=== PATIENT | male | born 1995 | race African-American/Black ===

== ENCOUNTER 2016-10-17 14:13 | Emergency (ER) | payer OTHER ==
[~2016-10-17] VITALS: Ht 198.1 cm; Wt 91.0 kg
[~2016-10-17 14:13] MED LIST: NAPR500 PO
[2016-10-17] MEDS ORDERED: SODIUM CHLOR 0.9% 1000 ML INJ 1,000 ML IV SCH (14:21)
[2016-10-17 14:22] VITALS: BP 142/88; PULSE 69; RESP 16; TEMP 97.8; O2SAT 100
[2016-10-17 14:30] VITALS: RESP 15; O2SAT 100
[2016-10-17] MEDS ORDERED: KETOROLAC TROMETHAMINE 30 MG/ML (IVP) VIAL IV PUSH ONE (14:30)
[2016-10-17 14:49] LABS: AUTOMATED NEUTROPHIL # 5.2 TH/MM3 (1.8-7.7); BASOPHIL % 0.2 % (0.0-2.0); EOSINOPHIL # 0.1 TH/MM3 (0-0.4); EOSINOPHIL % 1.3 % (0.0-4.0); HEMATOCRIT 41.3 % (39.0-51.0); HEMO FLAGS DIFF FINAL; LYMPHOCYTE # 1.5 TH/MM3 (1.0-4.8); MEAN CELL VOLUME 89.2 FL (80.0-100.0); MEAN CORPUSCULAR HGB CONC 32.5 % (32.0-36.0); MONO % 6.6 % (0.0-8.0); NEUT % 70.9 % (16.0-70.0); PLATELET COUNT 212 TH/MM3 (150-450); RED BLOOD COUNT 4.63 MIL/MM3 (4.50-5.90); RED CELL DISTRIBUTION WIDTH 13.2 % (11.6-17.2); WHITE BLOOD COUNT 7.4 TH/MM3 (4.0-11.0)
--- NOTE | 2016-10-17 14:49 | PD ---
HPI Chief Complaint: Chest Pain Time Seen by Provider: 14:17 Travel History International Travel<30 days: No Contact w/Intl Traveler<30days: No Traveled to known affect area: No History of Present Illness HPI 21-year-old male that presents to the ED for evaluation of chest pain. Per ambulance report and patient he had a little bit too much to drink yesterday. Patient was at a green party and he states that he doesn't know how much she drank. Denies any fevers chills or sweats. Per patient he woke up and weak with a headache which she didn't think much of it but as the day continued he started feeling more weak and tired. Per patient about 45 minutes before ambulance showed up he developed severe chest pain. Per patient she's never had this before. 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 He reports no trauma or injury. He states that the pain is sharp. Does not radiate. He states having some shortness of breath as well. He was not given anything by ambulance. He denies any other substance abuse. States that the pain is 6 out of 10. No fevers chills or sweats. No trauma. Other medical issues. No allergies to medication. PFSH Past Medical History Asthma: Yes Respiratory: Yes Immunizations Current: Yes Social History Alcohol Use: Yes (OCC) Tobacco Use: No Substance Use: No Allergies-Medications (Allergen,Severity, Reaction): Coded Allergies: No Known Allergies (Unverified , 10/17/16) Reported Meds & Prescriptions Reported Meds & Active Scripts Active No Active Prescriptions or Reported Medications Review of Systems Except as stated in HPI: all other systems reviewed are Neg Physical Exam Narrative GENERAL: SKIN: Warm and dry. HEAD: Atraumatic. Normocephalic. EYES: Pupils equal and round. No scleral icterus. No injection or drainage. ENT: No nasal bleeding or discharge. Mucous membranes pink and moist. Tongue is midline. No uvula deviation. NECK: Trachea midline. No JVD. CARDIOVASCULAR: Regular rate and rhythm. No murmurs, S3, S4. Chest is not reproducible with touch. RESPIRATORY: No accessory muscle use. Clear to auscultation. Breath sounds equal bilaterally. GASTROINTESTINAL: Abdomen soft, non-tender, nondistended. Hepatic and splenic margins not palpable. MUSCULOSKELETAL: Extremities without clubbing, cyanosis, or edema. No obvious deformities. Full range of motion of the upper and lower extremities bilaterally. 2+ pulses bilaterally. NEUROLOGICAL: Awake and alert. No obvious cranial nerve deficits. Motor grossly within normal limits. Five out of 5 muscle strength in the arms and legs. Normal speech. PSYCHIATRIC: Appropriate mood and affect; insight and judgment normal. Data Data Last Documented VS Vital Signs Date Time Temp Pulse Resp B/P (MAP) Pulse Ox O2 Delivery O2 Flow Rate FiO2 10/17/16 14:33 15 100 Room Air 10/17/16 14:22 97.8 69 142/88 (106) Orders Orders Electrocardiogram (10/17/16 14:21) Complete Blood Count With Diff (10/17/16 14:21) Comprehensive Metabolic Panel (10/17/16 14:21) Ckmb (Isoenzyme) Profile (10/17/16 14:21) Troponin I (10/17/16 14:21) Lipase (10/17/16 14:21) Magnesium (Mg) (10/17/16 14:21) Chest, Single Ap (10/17/16 14:21) Iv Access Insert/Monitor (10/17/16 14:21) Ecg Monitoring (10/17/16 14:21) Oximetry (10/17/16 14:21) Drug Screen, Random Urine (10/17/16 14:21) Alcohol (Ethanol) (10/17/16 14:21) Sodium Chlor 0.9% 1000 Ml Inj (Ns 1000 M (10/17/16 14:21) Ketorolac Inj (Toradol Inj) (10/17/16 14:30) CKMB (10/17/16 14:20) CKMB% (10/17/16 14:20) Pantoprazole Inj (Protonix Inj) (10/17/16 15:15) Famotidine Inj (Pepcid Inj) (10/17/16 15:15) Labs Laboratory Tests Test 10/17/16 14:20 White Blood Count 7.4 TH/MM3 Red Blood Count 4.63 MIL/MM3 Hemoglobin 13.4 GM/DL Hematocrit 41.3 % Mean Corpuscular Volume 89.2 FL Mean Corpuscular Hemoglobin 29.0 PG Mean Corpuscular Hemoglobin Concent 32.5 % Red Cell Distribution Width 13.2 % Platelet Count 212 TH/MM3 Mean Platelet Volume 9.7 FL Neutrophils (%) (Auto) 70.9 % Lymphocytes (%) (Auto) 21.0 % Monocytes (%) (Auto) 6.6 % Eosinophils (%) (Auto) 1.3 % Basophils (%) (Auto) 0.2 % Neutrophils # (Auto) 5.2 TH/MM3 Lymphocytes # (Auto) 1.5 TH/MM3 Monocytes # (Auto) 0.5 TH/MM3 Eosinophils # (Auto) 0.1 TH/MM3 Basophils # (Auto) 0.0 TH/MM3 CBC Comment DIFF FINAL Differential Comment Blood Urea Nitrogen 14 MG/DL Creatinine 1.07 MG/DL Random Glucose 86 MG/DL Total Protein 7.6 GM/DL Albumin 3.8 GM/DL Calcium Level 8.7 MG/DL Magnesium Level 1.9 MG/DL Alkaline Phosphatase 105 U/L Aspartate Amino Transf (AST/SGOT) 18 U/L Alanine Aminotransferase (ALT/SGPT) 23 U/L Total Bilirubin 0.2 MG/DL Sodium Level 141 MEQ/L Potassium Level 4.0 MEQ/L Chloride Level 104 MEQ/L Carbon Dioxide Level 29.3 MEQ/L Anion Gap 8 MEQ/L Estimat Glomerular Filtration Rate 104 ML/MIN Total Creatine Kinase 183 U/L Creatine Kinase MB 1.0 NG/ML Troponin I LESS THAN 0.02 NG/ML Lipase 94 U/L Ethyl Alcohol Level 7 MG/DL MDM Medical Decision Making Medical Screen Exam Complete: Yes Emergency Medical Condition: Yes Medical Record Reviewed: Yes Interpretation(s) CBC & BMP Diagram 10/17/16 14:20 Total Protein 7.6, Albumin 3.8, Calcium Level 8.7, Magnesium Level 1.9, Alkaline Phosphatase 105, Aspartate Amino Transf (AST/SGOT) 18, Alanine Aminotransferase (ALT/SGPT) 23, Total Bilirubin 0.2 EKG show LVH. No sign of acute ischemia or arrhythmia rhythm read by me and attending. This appears to be chronic. Last Impressions Chest X-Ray 10/17/16 1421 Signed Impressions: Service Date/Time: Monday, October 17, 2016 14:30 - CONCLUSION: No evidence of acute cardiopulmonary disease. Avtar Siu MD Troponin and CK-MB negative. Differential Diagnosis Cardiomyopathy versus chest pain versus atypical chest pain versus gastritis versus hangover Narrative Course 21-year-old male that presents to the ED for evaluation of chest pain and alcohol withdrawal. Patient was properly examined and was found to have signs and symptoms of unclear etiology. Appears to be more related to a hangover. Patient does have abnormality to the EKG and apparently he is aware of this. He was seen here on 2015 for same and he was offered admission by the time he did not want to get checked for this. He was told that he has arrived and his EKG by his doctor as well on the recommended that he gets an echocardiogram to make sure patient doesn't have a cardiomyopathy. 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 He denies any other medical issues. Labs and imaging were done and the only to taking possibly was his alcohol of 7 as well as EKG showing LVH. Case was discussed with my attending Dr. Posada who was made aware of all findings and evaluated the patient. We both strongly encouraged the patient to follow with her gold frame assembler to get further evaluation including an echocardiogram of his heart to make sure patient does not have an cardiomyopathy. Patient was told extensively that if he does have a cardiomyopathy he could . He seems somewhat hesitant to do this secondary to fear of being kicked out of basketball. Patient will be given outpatient follow-up with gold frame assembler. Patient agrees and understands this plan. Patient was told to avoid alcohol and caffeinated drinks. Close follow-up with PCP. See ED for worsening symptoms. Diagnosis Primary Impression: Atypical chest pain Additional Impression: Alcohol abuse Referrals: Bob Benites MD Patient Instructions: General Instructions Additional Instructions: Drink plenty of fluids. Follow with gold frame assembler. See ED for any worsening symptoms. Avoid alcohol and caffeinated drinks. Med/Other Pt SpecificInfo: Prescription(s) given Scripts No Active Prescriptions or Reported Meds Disposition: 01 DISCHARGE HOME Condition: Stable Ra Wallace Oct 17, 2016 14:49
--- NOTE | 2016-10-17 15:03 | RADRPT ---
EXAM DATE/TIME: 10/17/2016 14:30 [facility] COMPARISON: CHEST PA & LAT, April 28, 2015, 7:12. INDICATIONS : Chest pain. MEDICAL HISTORY : None. SURGICAL HISTORY : None. ENCOUNTER: Initial ACUITY: 1 day PAIN SCORE: 5/10 LOCATION: Left chest FINDINGS: A single view of the chest demonstrates the lungs to be symmetrically aerated without evidence of mas s, infiltrate or effusion. The cardiomediastinal contours are unremarkable. Osseous structures are intact. CONCLUSION: No evidence of acute cardiopulmonary disease. Avtar Siu MD on October 17, 2016 at 15:01 Board Certified Radiologist. This report was verified electronically.
[2016-10-17 15:05] LABS: ALT (GPT) 23 U/L (12-78); ANION GAP 8 MEQ/L (5-15); AST (GOT) 18 U/L (15-37); BICARBONATE 29.3 MEQ/L (21.0-32.0); BLOOD UREA NITROGEN 14 MG/DL (7-18); CHLORIDE 104 MEQ/L (98-107); GLOMERULAR FILTRATION RATE 104 ML/MIN (>89); MAGNESIUM 1.9 MG/DL (1.5-2.5); SODIUM (NA) 141 MEQ/L (136-145)
[2016-10-17 15:11] LABS: ALKALINE PHOSPHATASE 105 U/L (45-117); CREATINE KINASE 183 U/L (39-308); TOTAL BILIRUBIN ADULT 0.2 MG/DL (0.2-1.0)
[2016-10-17 15:13] LABS: ALCOHOL 7 MG/DL (0-5)
[2016-10-17] MEDS ORDERED: PANTOPRAZOLE SODIUM 40 MG VIAL IVP ONE (15:15)
[2016-10-17] MEDS ORDERED: FAMOTIDINE 20 MG/2 ML VIAL IV PUSH ONE (15:15)
--- NOTE | 2016-10-17 18:27 | PD ---
Data Data Last Documented VS Vital Signs Date Time Temp Pulse Resp B/P (MAP) Pulse Ox O2 Delivery O2 Flow Rate FiO2 10/17/16 14:33 15 100 Room Air 10/17/16 14:22 97.8 69 142/88 (106) Orders Orders Electrocardiogram (10/17/16 14:21) Complete Blood Count With Diff (10/17/16 14:21) Comprehensive Metabolic Panel (10/17/16 14:21) Ckmb (Isoenzyme) Profile (10/17/16 14:21) Troponin I (10/17/16 14:21) Lipase (10/17/16 14:21) Magnesium (Mg) (10/17/16 14:21) Chest, Single Ap (10/17/16 14:21) Iv Access Insert/Monitor (10/17/16 14:21) Ecg Monitoring (10/17/16 14:21) Oximetry (10/17/16 14:21) Drug Screen, Random Urine (10/17/16 14:21) Alcohol (Ethanol) (10/17/16 14:21) Sodium Chlor 0.9% 1000 Ml Inj (Ns 1000 M (10/17/16 14:21) Ketorolac Inj (Toradol Inj) (10/17/16 14:30) CKMB (10/17/16 14:20) CKMB% (10/17/16 14:20) Pantoprazole Inj (Protonix Inj) (10/17/16 15:15) Famotidine Inj (Pepcid Inj) (10/17/16 15:15) Labs Laboratory Tests Test 10/17/16 14:20 White Blood Count 7.4 TH/MM3 Red Blood Count 4.63 MIL/MM3 Hemoglobin 13.4 GM/DL Hematocrit 41.3 % Mean Corpuscular Volume 89.2 FL Mean Corpuscular Hemoglobin 29.0 PG Mean Corpuscular Hemoglobin Concent 32.5 % Red Cell Distribution Width 13.2 % Platelet Count 212 TH/MM3 Mean Platelet Volume 9.7 FL Neutrophils (%) (Auto) 70.9 % Lymphocytes (%) (Auto) 21.0 % Monocytes (%) (Auto) 6.6 % Eosinophils (%) (Auto) 1.3 % Basophils (%) (Auto) 0.2 % Neutrophils # (Auto) 5.2 TH/MM3 Lymphocytes # (Auto) 1.5 TH/MM3 Monocytes # (Auto) 0.5 TH/MM3 Eosinophils # (Auto) 0.1 TH/MM3 Basophils # (Auto) 0.0 TH/MM3 CBC Comment DIFF FINAL Differential Comment Blood Urea Nitrogen 14 MG/DL Creatinine 1.07 MG/DL Random Glucose 86 MG/DL Total Protein 7.6 GM/DL Albumin 3.8 GM/DL Calcium Level 8.7 MG/DL Magnesium Level 1.9 MG/DL Alkaline Phosphatase 105 U/L Aspartate Amino Transf (AST/SGOT) 18 U/L Alanine Aminotransferase (ALT/SGPT) 23 U/L Total Bilirubin 0.2 MG/DL Sodium Level 141 MEQ/L Potassium Level 4.0 MEQ/L Chloride Level 104 MEQ/L Carbon Dioxide Level 29.3 MEQ/L Anion Gap 8 MEQ/L Estimat Glomerular Filtration Rate 104 ML/MIN Total Creatine Kinase 183 U/L Creatine Kinase MB 1.0 NG/ML Troponin I LESS THAN 0.02 NG/ML Lipase 94 U/L Ethyl Alcohol Level 7 MG/DL MDM Supervised Visit with JUHI: Yes Narrative Course The history, exam, and medical decision-making in the associated midlevel provider note were completed with my assistance. I reviewed and agree with the findings presented. I attest that I had a [id number] encounter with the patient on the same day, and personally performed and documented my assessment and findings in the medical record. *My assessment and Findings: This is a 21-year-old male who presents to the emergency department with chest discomfort. He evidently had a night of drinking last evening and he also had some body aches and headache today. His pain is atypical. His EKG is unchanged from prior and his troponin is negative. He is young and healthy and I don't suspect coronary artery disease. I am concerned as he has evidence of left ventricular hypertrophy on EKG. 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 I think he needs to be screened for hypertrophic cardiomyopathy. I recommended that he follow-up with cardiology and have an echo performed. He expressed understanding. Diagnosis Primary Impression: Atypical chest pain Additional Impression: Alcohol abuse Referrals: Bob Benites MD Patient Instructions: General Instructions Departure Forms: Tests/Procedures Additional Instruction: Drink plenty of fluids. Follow with plant puller. See ED for any worsening symptoms. Avoid alcohol and caffeinated drinks. Scripts No Active Prescriptions or Reported Meds Disposition: DISCHARGE HOME Condition: Stable Laura Valadez MD Oct 17, 2016 18:26
--- NOTE | 2016-10-18 14:29 | EKG ---
Date Performed: 10/17/2016 Time Performed: 14:23:55 PTAGE: 21 years EKG: Sinus rhythm VOLTAGE CRITERIA FOR LVH ABNORMAL ECG PREVIOUS TRACING : 04/28/2015 06.20 Compared to prior tracing no significant change DOCTOR: Apolinar Eisenberg Interpretating Date/Time 10/18/2016 14:26:11
== END 2016-10-17 17:09 | disposition home or self-care (01) ==
LOC: NEPC 14:13
DX: R07.89 Other chest pain (principal); F10.10 Alcohol abuse, uncomplicated; R52 Pain, unspecified; R51 Headache; J45.909 Unspecified asthma, uncomplicated; R94.31 Abnormal electrocardiogram [ECG] [EKG]
CPT/HCPCS: 71010; 80053; 80307; 82550; 82552; 83690; 83735; 84484; 85025; 93005; 96361; 96374; 96375; 99285; C9113; J1885; J7030

== ENCOUNTER 2017-04-14 23:06 | Emergency (ER) | payer OTHER ==
[~2017-04-14] VITALS: Ht 195.6 cm; Wt 95.0 kg
[2017-04-14 23:09] VITALS: BP 130/75; PULSE 68; RESP 16; TEMP 98.5; O2SAT 100
[2017-04-15] MEDS ORDERED: AMOX500C PO (20:41)
== END 2017-04-15 01:30 | disposition left against medical advice (07) ==
LOC: NED 23:06
DX: Z03.89 Encounter for observation for other suspected diseases and conditions ruled out (principal)
CPT/HCPCS: 99281

== ENCOUNTER 2017-04-15 17:24 | Emergency (ER) | payer OTHER ==
[~2017-04-15] VITALS: Ht 198.1 cm; Wt 90.5 kg
[2017-04-15 17:25] VITALS: BP 146/61; PULSE 92; RESP 16; TEMP 98.7; O2SAT 100
[2017-04-15] MEDS ORDERED: AMOX500C PO (20:41)
[2017-04-15] MEDS ORDERED: AMOXICILLIN (TRIHYDRATE) 500 MG CAP PO ONE (20:45)
[2017-04-15] MEDS ORDERED: IBUPROFEN 600 MG TAB PO ONE (20:45)
--- NOTE | 2017-04-15 20:47 | PD ---
HPI Chief Complaint: Cold / Flu Symptoms Time Seen by Provider: 20:35 Travel History International Travel<30 days: No Contact w/Intl Traveler<30days: No Traveled to known affect area: No History of Present Illness HPI 22-year-old black male presents with a four-day history of fever, chills, headache, sore throat, cough, congestion and general malaise. He states in the last day he has developed a rash. He denies any pruritus. No nausea vomiting. No abdominal pain or diarrhea. No dysuria or frequency. Symptoms are moderate. Worse with swallowing. No alleviating factors. PFSH Past Medical History Asthma: Yes Diminished Hearing: No Respiratory: Yes Immunizations Current: Yes Tetanus Vaccination: < 5 Years Past Surgical History Surgical History: No Previous Surgery Social History Alcohol Use: Yes ([facility]) Tobacco Use: No Substance Use: No Allergies-Medications (Allergen,Severity, Reaction): Coded Allergies: No Known Allergies (Unverified Adverse Reaction, Unknown, 04/15/17) Reported Meds & Prescriptions Reported Meds & Active Scripts Active Amoxicillin 500 Mg Cap 1,000 Mg PO BID 10 Days Review of Systems Except as stated in HPI: all other systems reviewed are Neg Physical Exam Narrative GENERAL: Well-developed, well-nourished in no acute distress. Nontoxic appearing. HEAD: Normocephalic, atraumatic. EYES: Pupils equal round and reactive. Extraocular motions intact. No scleral icterus. No injection or drainage. ENT: TMs clear without erythema. The external auditory canals clear. Nose: clear . Posterior pharynx is erythematous positive and moist. No tonsillar edema with a small amount of white positive cervical adenopathy exudate. Uvula midline. Airway patent. NECK: Trachea midline.Supple, nontender, moves head freely. No central bony tenderness or spasm. Positive cervical adenopathy CARDIOVASCULAR: Regular rate and rhythm without murmurs, gallops, or rubs. RESPIRATORY: Clear to auscultation. Breath sounds equal bilaterally. No wheezes , rales, or rhonchi. GASTROINTESTINAL: Abdomen soft, non-tender, nondistended. No hepato-splenomegaly , or palpable masses. No guarding. EXTREMITIES: No clubbing, cyanosis, or edema. No joint tenderness, effusion, or edema noted. BACK: Nontender without deformity or crepitance. No flank tenderness. Skin: Fine papular rash. Data Data Last Documented VS Vital Signs Date Time Temp Pulse Resp B/P (MAP) Pulse Ox O2 Delivery O2 Flow Rate FiO2 04/15/17 17:25 98.7 92 16 146/61 (89) 100 Room Air Orders Orders Influenzae A/B Antigen (04/15/17 17:44) Amoxicillin (Trimox) (04/15/17 20:45) Ibuprofen (Motrin) (04/15/17 20:45) Ed Discharge Order (04/15/17 20:42) MDM Medical Decision Making Medical Screen Exam Complete: Yes Emergency Medical Condition: Yes Medical Record Reviewed: Yes Differential Diagnosis MDM: High Differential diagnoses: Strep throat, viral pharyngitis, mono Narrative Course patient was given amoxicillin 1 g p.o.Motrin 600 mg p.o. This is acute pharyngitis, scarlet fever Diagnosis Primary Impression: Acute pharyngitis Additional Impression: scarlet fever Patient Instructions: General Instructions Departure Forms: Tests/Procedures, Work Release Special Instructions: No work 2-3 days. Additional Instructions: Rest. Force fluids. Saltwater gargles. Tylenol and Advil. Chloraseptic [place] Cepastat lozenge. Amoxicillin. Follow-up with a primary care doctor in one week. Return to the ER if any problems. Med/Other Pt SpecificInfo: Prescription(s) given Scripts Amoxicillin (Amoxicillin) 500 Mg Cap 1000 MG PO BID for Infection for 10 Days, #40 CAP 0 Refills Prov: Ted Kaba MD 04/15/17 Disposition: 01 DISCHARGE HOME Condition: Stable Sky Pagan Apr 15, 2017 20:47
== END 2017-04-15 21:20 | disposition home or self-care (01) ==
LOC: NEPD 17:24
DX: J02.9 Acute pharyngitis, unspecified (principal); A38.9 Scarlet fever, uncomplicated; J45.909 Unspecified asthma, uncomplicated; R05 Cough; R09.81 Nasal congestion; R51 Headache; R53.81 Other malaise
CPT/HCPCS: 87804; 99283